=== PATIENT | male | born 1995 | race Caucasian/White ===

== ENCOUNTER 2019-02-05 07:50 | Emergency (ER) | payer BC ==
[~2019-02-05] VITALS: Ht 188 cm; Wt 136.1 kg
--- NOTE | 2019-02-05 07:53 | NUR ---
PATIENT TAKEN TO BED 8.
[2019-02-05 07:57] VITALS: BP 138/86
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
--- NOTE | 2019-02-05 08:06 | NUR ---
XRAY AT BEDSIDE
--- NOTE | 2019-02-05 08:17 | NUR ---
DR ESCOTO AT BEDSIDE
[2019-02-05] MEDS ORDERED: KETOROLAC 60 MG/2 ML VIAL IM ONE (08:25)
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
[2019-02-05 08:55] VITALS: BP 134/85
--- NOTE | 2019-02-05 08:55 | NUR ---
Patient discharged with v/s stable. Written and verbal after care instructions given and explained. Patient alert, oriented and verbalized understanding of instructions. Ambulatory with CRUTCHES. All questions addressed prior to discharge. ID band removed. Patient advised to follow up with PMD. Rx of MOTRIN AND NORCO given. Patient educated on indication of medication including possible reaction and side effects. Opportunity to ask questions provided and answered. PT INSTRUCTED TO REST, ICE, ELEVATE, AND COMPRESS. AND TO NOT DRIVE AFTER TAKING NORCO
== END 2019-02-05 08:55 | disposition home or self-care (01) ==
LOC: MED 07:50
DX: S93.401A Sprain of unspecified ligament of right ankle, initial encounter (principal); S01.512A Laceration without foreign body of oral cavity, initial encounter; J45.909 Unspecified asthma, uncomplicated; W22.8XXA Striking against or struck by other objects, initial encounter; Y93.89 Activity, other specified; Y92.89 Other specified places as the place of occurrence of the external cause; Y99.8 Other external cause status
CPT/HCPCS: 73610; 90471; 90715; 96372; 99283; J1885; Q0092